=== PATIENT | female | born 1935 | race Caucasian/White ===

== ENCOUNTER 2016-07-19 14:49 | Emergency (ER) | payer OTHER, MEDICARE ==
[~2016-07-19] VITALS: Ht 152.4 cm; Wt 59.0 kg
[2016-07-19 15:09] VITALS: Ht 152.4 cm; Wt 59.0 kg
[2016-07-19] MEDS ORDERED: SOD CHLORIDE 0.9% 1,000 ML IV ONE (20:30)
--- NOTE | 2016-07-19 20:31 | ERD ---
ER Documentation Chief Complaint Date/Time DATE: 07/19/16 TIME: 20:29 Chief Complaint BLOOD SUGAR HIGH @ HOME, BS NOW 322 HPI Patient is a 81-year-old female with diabetes brought in by family for elevated blood sugar for the past 4 days. Family states that they have been checking her blood sugar regularly and finding levels greater than 400 on numerous occasions. The patient has had no complaints. According to family the patient is not always compliant with her medication, will sometimes take extra doses of medication or missed doses of medication. She is also not compliant with diet, has recently eaten candy, pupusas, tortillas. Patient denies dizziness, fever, dyspnea, dysuria. Patient arrived from [facility] 4-5 months ago, and has established care with a primary doctor. Has an appointment in 3 days. ROS All systems reviewed and are negative except as per history of present illness. Medications Home Meds Active Scripts Metformin* (Glucophage*) 500 Mg Tab, 500 MG PO BID, #120 TAB Prov:YOVANY REDDY MD 07/19/16 Reported Medications Metformin Hcl* (Metformin Hcl*) 500 Mg Tablet, 500 MG PO WITH BREAKFAST DINNE, # 60 TAB take 1tab qam and 2tab qpm 07/19/16 Valsartan-Hydrochlorothiazide (Valsartan-HCTZ) 160-12.5 Mg Tablet, 1 TAB PO DAILY, #30 TAB 07/19/16 Atorvastatin Calcium* (Atorvastatin Calcium*) 20 Mg Tablet, 20 MG PO QHS, #30 TAB 07/19/16 Allergies Allergies: Coded Allergies: No Known Allergy (Unverified , 07/19/16) PMhx/Soc Past medical history: Diabetes mellitus, hypertension Past surgical history: Denies Social history: Denies tobacco or alcohol Medical and Surgical Hx: pt denies Surgical Hx Hx Cardiac Disorders: Yes (HTN) Hx Alcohol Use: No Hx Substance Use: No Hx Tobacco Use: No Smoking Status: Never smoker FmHx Family History: diabetes, No coronary disease Physical Exam Vitals Vital Signs Date Time Temp Pulse Resp B/P Pulse Ox O2 Delivery O2 Flow Rate FiO2 07/19/16 20:16 59 18 139/64 100 Room Air 07/19/16 15:09 98.0 78 20 137/64 98 Physical Exam Const: Alert, no acute distress Head: Atraumatic Eyes: Normal Conjunctiva, no pallor or icterus ENT: Normal External Ears, Nose and Mouth. Moist mucous membranes Neck: Full range of motion. No JVD. No meningismus. Resp: Clear to auscultation bilaterally no wheeze, no rales Cardio: Regular rate and rhythm, no murmurs Abd: Soft, non tender, non distended. No pulsatile mass Skin: No petechiae or rashes Back: No midline or flank tenderness Ext: No cyanosis, or edema Neur: Awake and alert, cranial nerves II through XII intact bilaterally, moves and feels 4 extremities appropriately Psych: Normal Mood and Affect Result Diagram: 07/19/162039 Results 24 hrs Laboratory Tests Test 07/19/16 20:10 07/19/16 20:40 Urine Color LT. YELLOW Urine Clarity CLEAR Urine pH 5.0 Urine Specific [place] >=1.030 Urine Ketones TRACE Urine Nitrite NEGATIVE Urine Bilirubin NEGATIVE Urine Urobilinogen 0.2 E.U./dL Urine Leukocyte Esterase TRACE Urine Microscopic RBC 0-2/HPF Urine Microscopic WBC 5-10/HPF Urine Squamous Epithelial Cells FEW Urine Hemoglobin NEGATIVE Urine Glucose >=1000% Urine Total Protein NEGATIVE Sodium Level 132mmol/L Potassium Level 4.3mmol/L Chloride Level 97mmol/L Carbon Dioxide Level 26mmol/L Anion Gap 13 Blood Urea Nitrogen 16mg/dl Creatinine 0.63mg/dl Glucose Level 273mg/dl Calcium Level 9.8mg/dl Current Medications Medications (Trade) Dose Ordered Sig/Tessie Route PRN Reason Start Time Stop Time Status Last Admin Dose Admin Sodium Chloride (NS) 1,000 ml @ 1,000 mls/hr Q1H ONCE IV 07/19/16 20:30 07/19/16 21:29 DC 07/19/16 20:42 Procedures/MDM MDM: Patient with hyperglycemia due to diabetes mellitus type 2. Patient has not been completely compliant with her medication, and has had dietary indiscretion. No signs of infection or DKA. No other electrolyte abnormality. Patient is asymptomatic and appears well with normal exam. Family confirmed that the patient does not in fact have an appointment with her PMD until August. I will give a prescription for metformin to cover her until appointment. I have advised the family to monitor her glucose carefully, a sister and taking her medication as prescribed, and to ensure that the patient eats a diet that is low in carbohydrates and sugar. Blood sugar is 272, down from over 400, and patient was given IV fluids to help further lower her blood sugar. Departure Diagnosis: Primary Impression: Hyperglycemia Condition: YOVANY Campbell MD Jul 19, 2016 20:31
[2016-07-19 20:41] LABS: ADD UMIC YES; URINE BILIRUBIN (Dip) NEGATIVE (NEGATIVE); URINE BLOOD (Dip) NEGATIVE (NEGATIVE); URINE COLOR LT. YELLOW (YELLOW); URINE GLUCOSE (Dip) >=1000 % (NEGATIVE); URINE KETONES (Dip) TRACE (NEGATIVE); URINE LEUKOCYTE ESTERASE (Dip) TRACE (NEGATIVE); URINE NITRITE (Dip) NEGATIVE (NEGATIVE); URINE TOTAL PROTEIN (Dip) NEGATIVE (NEGATIVE); URINE UROBILINOGEN (Dip) 0.2 E.U./dL (0.1-1.0)
[2016-07-19 20:48] LABS: SQUAMOUS EPITHELIAL CELL,UR FEW; URINE RBCS 0-2 /HPF (0)
[2016-07-19 20:54] LABS: POTASSIUM 4.3 mmol/L (3.5-5.1)
[2016-07-19] MEDS ORDERED: VALS1TAB76 PO (20:54)
[2016-07-19] MEDS ORDERED: ATOR20TA38 PO (20:54)
[2016-07-19] MEDS ORDERED: METF-382 PO (20:55)
[2016-07-19 20:57] LABS: CREATININE 0.63 mg/dl (0.44-1.00)
[2016-07-19 20:58] LABS: CALCIUM 9.8 mg/dl (8.4-10.2)
[2016-07-19] MEDS ORDERED: METF500T4 PO (21:49)
[2016-07-19 21:51] VITALS: BP 100/80; PULSE 69; RESP 19
== END 2016-07-19 22:16 | disposition home or self-care (01) ==
LOC: E/R 14:49
DX: E11.65 Type 2 diabetes mellitus with hyperglycemia (principal); I10 Essential (primary) hypertension; Z79.84 Long term (current) use of oral hypoglycemic drugs
CPT/HCPCS: 80048; 81001; 82962; J7030; Z7502; 81003

== ENCOUNTER 2018-08-26 12:18 | Emergency (ER) | payer MEDICARE, OTHER ==
[~2018-08-26] VITALS: Wt 55.7 kg
[~2018-08-26 12:18] MED LIST: ATOR20TA38 PO; METF-849 PO; METF500T24 PO; VALS1TAB76 PO
[2018-08-26 12:22] VITALS: BP 145/67; PULSE 70; RESP 18
--- NOTE | 2018-08-26 14:09 | ERD ---
ER Documentation Chief Complaint Chief Complaint VOMITED X 3 yesterday HPI 83-year-old female, with history of diabetes, well-controlled on metformin and diet, presents to the emergency department, brought in by her son, for physical examination after presenting 3 episodes of postprandial emesis yesterday. Last episode more than 20 hours ago. The patient denies abdominal pain, no fever, no headache, no dizziness, no chest pain, no shortness of breath. She suspects that the symptoms were secondary to a food ingestion. Currently, the patient refers feeling fine, no other symptoms or complaints. ROS All systems reviewed and are negative except as per history of present illness. Medications Home Meds Active Scripts Ondansetron Hcl* (Zofran*) 4 Mg Tablet, 4 MG PO BID for NAUSEA AND/OR VOMITING, #10 TAB Prov:GENESIS SEXTON MD 08/26/18 Metformin* (Glucophage*) 500 Mg Tab, 500 MG PO BID, #120 TAB Prov:YOVANY REDDY MD 07/19/16 Reported Medications Metformin Hcl* (Metformin Hcl*) 500 Mg Tablet, 500 MG PO WITH BREAKFAST DINNE, #60 TAB take 1tab qam and 2tab qpm 07/19/16 Valsartan-Hydrochlorothiazide (Valsartan-HCTZ) 160-12.5 Mg Tablet, 1 TAB PO DAILY, #30 TAB 07/19/16 Atorvastatin Calcium* (Atorvastatin Calcium*) 20 Mg Tablet, 20 MG PO QHS, #30 TAB 07/19/16 Allergies Allergies: Coded Allergies: No Known Allergy (Unverified , 07/19/16) PMhx/Soc Hx Cardiac Disorders: Yes (HTN) Hx Psychiatric Problems: Yes (DEPRESSION) Hx Alcohol Use: No Hx Substance Use: No Hx Tobacco Use: No FmHx Family History: diabetes; No coronary disease Physical Exam Vitals Vital Signs Date Temp Pulse Resp B/P (MAP) Pulse Ox O2 O2 Flow FiO2 Time Delivery Rate 08/26/18 98.0 70 18 145/67 99 12:22 (93) Physical Exam Const: No acute distress Head: Atraumatic Eyes: Normal Conjunctiva ENT: Normal External Ears, Nose and Mouth. Neck: Full range of motion. No meningismus. Resp: Clear to auscultation bilaterally Cardio: Regular rate and rhythm, no murmurs Abd: Soft, non tender, non distended. Normal bowel sounds Skin: No petechiae or rashes Back: No midline or flank tenderness Ext: No cyanosis, or edema Neur: Awake and alert Psych: Normal Mood and Affect Results 24 hrs Laboratory Tests Test 08/26/18 13:58 08/26/18 14:02 Bedside Glucose 149 mg/dL Bedside Urine pH (LAB) 6.0 Bedside Urine Protein (LAB) Negative Bedside Urine Glucose (UA) Negative Bedside Urine Ketones (LAB) Trace Bedside Urine Blood Negative Bedside Urine Nitrite (LAB) Negative Bedside Urine Leukocyte Esterase (L Trace Procedures/MDM Physical exam unremarkable, patient in no distress, hydrated, adequate oral intake, abdomen, soft, nontender, no peritoneal signs. Differential diagnosis include but not limited to: gastrointestinal infection bacterial/viral, UTI, appendicitis, colitis, food poisoning, food intolerance. Low suspicion for acute abdomen Physical examination and clinical presentation consistent most likely with acute gastroenteritis. During the ED course the patient remained stable. Clinical impression discussed with the patient and her son who agrees with management. The patient is stable to be discharged home, Some side effects of prescribed medications (headache, rash, nausea, vomiting, diarrhea, interactions with other medications) were reviewed. The patient requires a follow up with the primary care provider in the next 48h. If symptoms persist, worsen or new symptoms develop, then patient should return to the ED immediately. Disclaimer: Inadvertent spelling and grammatical errors are likely due to EHR/dictation software use and do not reflect on the overall quality of patient care. Also, please note that the electronic time recorded on this note does not necessarily reflect the actual time of the patient encounter. Departure Diagnosis: Primary Impression: History of vomiting Condition: Stable Additional Instructions: Muchas jayjay por [facility] para avila servicio. Esperamos que en avila visita a la angela de emergencia avila problema medico haya sido solucionado y que se sienta mucho mejor. Para estar seguros que avila mejoria sigue en proceso, le pedimos el favor de hacer mahi mandeep de seguimiento medico con avila doctor primario en los proximos 2-4 tavares. Lleve con usted estos documentos y las medicinas recetadas. Si celio sintomas empeoran, NO SE ESPERE, por favor regrese a angela de emergencia INMEDIATAMENTE. En luis miguel que usted no tenga un mdico de atencin primaria: Llame al mdico o clnica comunitaria de referencia que aparece abajo cristal las horas de consultorio para hacer mahi mandeep para que le vean. CLINICAS: [facility] [phone] [facility] [phone] [facility] [phone] [facility] [phone] [facility] [phone] [id number] [facility]. [phone] GENESIS ESQUIVEL MD August 26, 2018 14:09
[2018-08-26] MEDS ORDERED: ONDA4TAB8 PO (14:45)
== END 2018-08-26 14:49 | disposition home or self-care (01) ==
LOC: FTE 12:18
DX: R11.10 Vomiting, unspecified (principal); I10 Essential (primary) hypertension; E11.9 Type 2 diabetes mellitus without complications; Z79.84 Long term (current) use of oral hypoglycemic drugs
CPT/HCPCS: 81003; 82962; 99283